=== PATIENT | male | born 1955 | race Caucasian/White ===

== ENCOUNTER 2018-06-27 21:35 | Emergency (ER) | payer OTHER ==
[~2018-06-27 21:35] MED LIST: ASPIRIN81 M4 PO; ATORVASTATIN CA80 M1 PO; LISINOPRIL10 M1 PO
--- NOTE | 2018-06-27 22:25 | ED GENERAL ADULT ---
History of Present Illness General Chief Complaint: ETOH/Drug Related Complaint Stated Complaint: [facility], WITHDRAWL SYMPTOMS Source: patient, [facility] record Exam Limitations: no limitations Vital Signs & Intake/Output Vital Signs & Intake/Output Vital Signs Date Time Temp Pulse Resp B/P B/P Pulse O2 O2 Flow FiO2 Mean Ox Delivery Rate 06/28 0656 97.2 50 18 102/56 06/28 0656 97.2 50 18 104/56 95 Room Air 06/28 0500 97.0 50 18 104/61 06/28 0500 97.0 50 18 104/61 97 Room Air 06/28 0042 98.2 55 16 112/59 06/28 0041 98.2 55 16 112/59 95 Room Air 06/27 2148 97.8 54 18 127/68 97 Room Air 06/27 2146 97.7 54 18 124/67 Allergies Coded Allergies: No Known Allergies (06/26/18) Reconcile Medications Aspirin (Aspirin*) 81 MG TAB.CHEW 1 TAB PO DAILY HEART HEALTH (Reported) Atorvastatin Calcium 80 MG TABLET 1 TAB PO DAILY CHOLESTEROL (Reported) Clonidine HCl 0.1 MG TABLET 0.1 MG PO Q4HR WITHDRAWAL (Reported) Gabapentin (Unknown Strength) CAPSULE (Unknown Dose) WITHDRAWAL (Reported) Hydroxyzine Pamoate 25 MG CAPSULE 25 MG PO Q6HR ANXIETY (Reported) Levetiracetam (Keppra) 500 MG TABLET 500 MG PO BID SEIZURE (Reported) Lisinopril 10 MG TABLET 1 TAB PO DAILY heart (Reported) Triage Note: SENT FROM [facility] CONCERN FOR IMPEDING DT'S Triage Nurses Notes Reviewed? yes HPI: 63-year-old male with a history of hypertension, hyperlipidemia, GA x2 (2013 and in the ), and bladder cancer (in remission) presenting for [facility] due to DT concerns. Patient was discharged to [facility] this morning and due to constricted pupils and clammy skin. (Dio Su MD) Past History Travel History Traveled to [place] past 21 day No Medical History Any Pertinent Medical History? see below for history Cardiovascular: hypertension, hyperlipidemia, myocardial infarction, X2 Surgical History Surgical History: non-contributory Psychosocial History What is your primary language Sierra Leonean Tobacco Use: Current Not Daily ETOH Use: heavy use Illicit Drug Use: denies illicit drug use Family History Hx Contributory? No (Dio Su MD) Review of Systems Review of Systems Constitutional: Reports: no symptoms, see HPI. EENTM: Reports: no symptoms. Respiratory: Reports: no symptoms. Cardiovascular: Reports: no symptoms. GI: Reports: no symptoms. Genitourinary: Reports: no symptoms. Musculoskeletal: Reports: no symptoms. Skin: Reports: no symptoms. Neurological/Psychological: Reports: no symptoms. Hematologic/Endocrine: Reports: no symptoms. Immunologic/Allergic: Reports: no symptoms. All Other Systems: Reviewed and Negative (Dio Su MD) Physical Exam Physical Exam General Appearance: well developed/nourished, no apparent distress, comfortable Comments: General: Alert, calm, cooperative Head: Normocephalic, atraumatic Eyes: Normal inspection, no nystagmus, EOMI Ears: Normal inspection Nose: Normal inspection Throat: Moist mucosa Neck: Supple, no goiter Heart: Regular rate and rhythm, no murmurs rubs or gallops Lungs: Clear to auscultation bilaterally with good air entry Abdomen: Soft nontender nondistended, normal bowel sounds Chest: Nontender Extremities: Normal range of motion grossly, mild tremors present, no cyanosis clubbing or edema of the upper extremities. Skin turgor. Neurologic: cranial nerves II through XII grossly intact, speech clear, gait normal. Tremor improved since prior evaluation. Psychiatric: No apparent delusions or hallucinations, no pressured speech or thought blocking Core Measures ACS in differential dx? No CVA/TIA Diagnosis: No Sepsis Present: No Sepsis Focused Exam Completed? No (Georges CARTER,Dio) Progress Differential Diagnoses I considered the following diagnoses in my evaluation of the patient: Alcohol withdrawal Plan of Care: Orders Procedure Date/time Status Heart Healthy Diet 06/28 B Active URINE DRUG SCREEN FOR ER ONLY 06/28 719 Active CIWA 06/27 2212 Active ETHANOL 06/27 2212 Complete CBC WITHOUT DIFFERENTIAL 06/27 2212 Complete BASIC METABOLIC PANEL 06/27 2212 Complete Laboratory Tests 06/28/18 0720: Methadone Screen Pending, Barbiturate Screen Pending, Ur Phencyclidine Scrn Pending, Amphetamines Screen Pending, U Benzodiazepines Scrn Pending, Urine Cocaine Screen Pending, Urine Cannabis Screen Pending 06/27/18 2321: Anion Gap 8, Estimated GFR > 60, BUN/Creatinine Ratio 20.0, Glucose 131 H, Calcium 9.1, CBC w Diff NO MAN DIFF REQ, RBC 4.09 L, MCV 103.4 H, MCH 35.1 H, MCHC 33.9, RDW 13.6, MPV 12.0 H, Gran % 52.6, Lymphocytes % 40.5, Monocytes % 5.6, Eosinophils % 0.7, Basophils % 0.6, Absolute Granulocytes 2.5, Absolute Lymphocytes 1.9, Absolute Monocytes 0.3, Absolute Eosinophils 0, Absolute Basophils 0, Serum Alcohol < 10.0 06/27/18 2212: Methadone Screen Cancelled, Barbiturate Screen Cancelled, Ur Phencyclidine Scrn Cancelled, Amphetamines Screen Cancelled, U Benzodiazepines Scrn Cancelled, Urine Cocaine Screen Cancelled, Urine Cannabis Screen Cancelled Initial ED EKG: none Hand-Off Endorsed To: Sreekanth Stephenson MD Endorsed Time: 706 Comments: Patient is able to tolerate p.o. and will rehydrate and feed. (Dio Su MD) Differential Diagnoses I considered the following diagnoses in my evaluation of the patient: Comments: 07 patient is awake, alert and oriented. No signs of alcohol withdrawal. Walking comfortably. Normal gait. No tremors. No signs of alcohol withdrawal. Safe to be discharged to rehab. (Sreekanth Stephenson MD) Departure Departure Disposition: STILL A PATIENT Condition: Stable Clinical Impression Primary Impression: Alcohol dependence Qualifiers: Substance use status: unspecified alcohol-induced disorder Qualified Code: F10.29 - Alcohol dependence with unspecified alcohol-induced disorder Referrals: Unknown (PCP/Family) Departure Forms: Customer Survey General Discharge Information (Dio Su MD) Departure Time of Disposition: 747 Additional Instructions: Follow-up with a primary doctor. Return for any new or concerning symptoms. (Sreekanth Stephenson MD) Critical Care Note Critical Care Note Critical Care Time: non-applicable (Dio Su MD)
[2018-06-27 23:27] LABS: ABSOLUTE BASOPHIL COUNT 0 /CUMM (0.0-0.2); ABSOLUTE EOSINOPHIL COUNT 0 /CUMM (0.0-0.7); ABSOLUTE GRANULOCYTE CT 2.5 /CUMM (1.4-6.5); ABSOLUTE LYMPH COUNT 1.9 /CUMM (1.2-3.4); ABSOLUTE MONOCYTE COUNT 0.3 /CUMM (0.10-0.60); BASOPHIL % 0.6 % (0.0-2.0); EOSINOPHIL % 0.7 % (0-5); GRANULOCYTE % 52.6 % (42.2-75.2); HEMATOCRIT 42.3 % (42-52); MEAN CORPUSCULAR HGB 35.1 PG (27.0-31.0); MEAN CORPUSCULAR HGB CONC 33.9 G/DL (33.0-37.0); MEAN CORPUSCULAR VOLUME 103.4 FL (80.0-94.0); RBC DISTRIBUTION WIDTH 13.6 % (11.5-14.5); RED BLOOD CELL CT 4.09 /CUMM (4.70-6.10); WHITE BLOOD CELL COUNT 4.8 /CUMM (4.8-10.8)
[2018-06-27 23:38] LABS: PLATELET COUNT 55 /CUMM (130-400)
[2018-06-28] MEDS ORDERED: HYDROXYZINE PAM25 M2 PO (02:46)
[2018-06-28] MEDS ORDERED: CLONIDINE HCL0.1 MG PO (02:46)
[2018-06-28] MEDS ORDERED: KEPPRA500 M1 PO (02:47)
[2018-06-28] MEDS ORDERED: GABAPENTIN100 M2 (02:47)
[2018-06-28 06:56] VITALS: BP 102/56
== END 2018-06-28 07:55 ==
LOC: ERH 21:35
PROVIDERS: Emergency Medicine
DX: F10.20 Alcohol dependence, uncomplicated (principal); I10 Essential (primary) hypertension; E78.5 Hyperlipidemia, unspecified; F17.200 Nicotine dependence, unspecified, uncomplicated
CPT/HCPCS: 80307; G0480